=== PATIENT | male | born 1940 | race Caucasian/White ===

== ENCOUNTER 2019-08-19 14:04 | Outpatient (RCR) | payer MEDICARE, SELFPAY | END 2019-11-17 23:59 | disposition home or self-care (01) | LOC: ANHDMC 14:04 | PROVIDERS: PCP Family Medicine; Visit Provider Family Medicine | DX: E11.9 Type 2 diabetes mellitus without complications (principal); Z71.89 Other specified counseling | CPT/HCPCS: G0108; G0109 ==

== ENCOUNTER 2019-11-19 09:46 | Outpatient (RCR) | payer MEDICARE, SELFPAY | END 2020-02-17 23:59 | disposition home or self-care (01) | LOC: ANHDMC 09:46 | PROVIDERS: PCP Family Medicine; Visit Provider Family Medicine | DX: E11.9 Type 2 diabetes mellitus without complications (principal); Z71.89 Other specified counseling | CPT/HCPCS: G0108 ==

== ENCOUNTER 2020-03-16 12:21 | Outpatient (CLI) | payer MEDICARE, SELFPAY ==
[2020-03-16 12:58] LABS: Hemoglobin A1C 8.1 % (<5.7)
== END 2020-03-16 12:22 | disposition home or self-care (01) ==
PROVIDERS: PCP Family Medicine; Visit Provider Family Medicine
DX: E11.69 Type 2 diabetes mellitus with other specified complication (principal)
CPT/HCPCS: 36415; 83036

== ENCOUNTER 2021-03-28 14:24 | Outpatient (CLI) | payer MEDICARE, SELFPAY ==
[2021-03-28 14:57] LABS: Basophils Absolute Auto 0.1 K/mm3 (0.0-0.1); Eosinophils Absolute Auto 0.2 K/mm3 (0-0.3); Eosinophils Percent Auto 2.4 % (0-4.4); Hematocrit 42.9 % (42.0-52.0); Hemoglobin 14.8 g/dL (14.0-18.0); Immature Granulocyte Absolute 0.03 K/mm3 (0.00-0.031); Immature Granulocyte Percent A 0.4 % (0-0.5); Lymphocytes Absolute Auto 2.04 K/mm3 (0.9-3.2); Lymphocytes Percent Auto 25.9 % (18.3-44.2); Mean Corpuscular HGB Conc 34.5 g/dl (32-36); Mean Corpuscular Hemoglobin 33.3 pg (26-34); Mean Corpuscular Volume 96.6 fl (80-100); Mean Platelet Volume 9.1 fl (7.4-10.4); Monocytes Absolute Auto 0.7 K/mm3 (0.1-0.6); Monocytes Percent Auto 8.3 % (2.6-8.5); Neutrophils Absolute Auto 4.9 K/mm3 (1.3-6.7); Platelet Count Result 262 k/mm3 (150-375); Red Blood Count 4.44 M/mm3 (4.6-6.20); Red Cell Distribution Width 12.6 % (11.5-14.5); White Blood Count 7.9 K/mm3 (4.5-10.0)
[2021-03-28 15:08] LABS: Alanine Aminotransferase 20 U/L (4-50); Albumin Level 4.4 g/dL (3.5-5.1); Alkaline Phosphatase 51 U/L (38-126); Anion Gap 11 mmol/L (8-16); Aspartate Amino Transferase 37 U/L (17-59); Bilirubin,Total 0.7 mg/dL (0.2-1.3); Blood Urea Nitrogen 18 mg/dL (9-20); Calcium 9.9 mg/dL (8.4-10.2); Carbon Dioxide 27 mmol/L (22-30); Chloride 105 mmol/L (98-107); Cholesterol 147 mg/dL (0-200); Estimated Glomerular Filt Rate 58; Glucose 161 mg/dL (75-110); HDL Direct 54 mg/dL; Potassium 4.9 mmol/L (3.4-5.0); Sodium 143 mmol/L (137-145); Triglycerides 183 mg/dL (<150)
[2021-03-28 15:19] LABS: Hemoglobin A1C 7.7 % (<5.7); LDL Cholesterol Direct 65 mg/dL
[2021-03-28 15:31] LABS: Creatinine Urine 158.8 mg/dL
[2021-03-28 15:36] LABS: MALB Creatinine Ratio 5.1 mg/g (0-30); Microalbumin Urine Random 8.1 mg/L (0-16.7)
[2021-03-28 16:01] LABS: Vitamin D 25 Hydroxy 19.7 ng/mL
== END 2021-03-28 14:25 | disposition home or self-care (01) ==
LOC: ANHLAB 14:29
PROVIDERS: PCP Family Medicine; Visit Provider Nurse Practitioner
DX: I10 Essential (primary) hypertension (principal); E55.9 Vitamin D deficiency, unspecified; E11.9 Type 2 diabetes mellitus without complications; E78.5 Hyperlipidemia, unspecified
CPT/HCPCS: 36415; 80053; 80061; 82043; 82306; 83036; 85025

== ENCOUNTER 2022-01-26 12:41 | Outpatient (CLI) | payer MEDICARE, SELFPAY ==
--- NOTE | ~2022-01-26 | CT_ITS ---
EXAMINATION: CT abdomen pelvis wo con EXAM DATE: 01/26/2022 13:10 INDICATION: Enterococcus UTI. TECHNIQUE: Spiral CT of the abdomen and pelvis was performed without contrast. Axial, coronal and sag ittal images were reviewed. The dose-length product (DLP) for this examination was 1216.91 mGy-cm. The exposure was tailored according to patient size (auto mA exposure control), and iterative reconst ruction (ASIR) was used as additional dose reduction technique. There is no prior study for comparis on. FINDINGS: There is moderate left, mild right renal atrophy. There is stone or are 2 contiguous stones in the distal aspect of the left ureter, measuring 7 x 14 mm (axial image 169, coronal image 94), 3 cm from the ureterovesicular junction. No other genitourinary calcifications. No hydroureteronephrosi s. Mild prostatomegaly. The bladder is unremarkable. The liver, spleen, adrenal glands and pancreas are unremarkable. Gallbladder is unremarkable. No biliary obstruction. There is no retroperitonea l or pelvic lymphadenopathy. There is mild scattered arteriosclerotic disease. Small umbilical fat- containing hernia with some fat stranding. The appendix is normal. The stomach and small bowel are unremarkable. There is expected amount of c olonic stool. No free intraperitoneal gas. Sternotomy wires, mild cardiomegaly. Coronary artery eri cifications and/or stents. The lung bases are unremarkable. There are no osteoblastic or osteolytic lesions identified. IMPRESSION: 1. Stone or stones in the distal aspect left ureter. No hydronephrosis. Moderate left atrophy. 2. Small umbilical fat-containing hernia with some inflammation. 3. Mild prostatomegaly. Reviewed, dictated and finalized at location B. IMPRESSION: 1. Stone or stones in the distal aspect left ureter. No hydronephrosis. Modera te left atrophy. 2. Small umbilical fat-containing hernia with some inflammation. 3. Mild prostatomegaly.
--- NOTE | ~2022-01-26 | XR_ITS ---
EXAMINATION: XR abdomen/kub 1V EXAM DATE: 01/26/2022 13:05 INDICATION: Enterococcus urinary tract infection. TECHNIQUE: Frontal projection of the upper abdomen, frontal projection lower abdomen/pelvis for inter pretation. Correlation is made to x-ray same date. FINDINGS: Large left distal ureteral stone or stones is identified, indicated. Nonobstructive bowel gas pattern. Sternotomy wires. Moderate degenerative changes. IMPRESSION: Left distal ureteral stone or stones. Reviewed, dictated and finalized at location B.
== END 2022-01-26 12:42 | disposition home or self-care (01) ==
LOC: ANHIMG 12:43
PROVIDERS: PCP Family Medicine; Visit Provider Nurse Practitioner Adult Health
DX: N39.0 Urinary tract infection, site not specified (principal); N20.2 Calculus of kidney with calculus of ureter; K42.9 Umbilical hernia without obstruction or gangrene; N40.0 Benign prostatic hyperplasia without lower urinary tract symptoms
CPT/HCPCS: 74018; 74176

== ENCOUNTER 2022-02-05 11:05 | Outpatient (CLI) | payer MEDICARE, SELFPAY ==
--- NOTE | 2022-02-05 11:30 | ECG_ITS ---
Measurements Intervals [place] Rate: 64 P: 60 OR: 218 QRS: -37 QRSD: 123 T: 59 QT: 392 QTc: 406 Interpretive Statements SINUS RHYTHM WITH FIRST DEGREE AV BLOCK WITH OCCASIONAL SUPRAVENTRICULAR PREMATURE COMPLEXES MARKED LEFT AXIS DEVIATION [QRS AXIS < -30] INCOMPLETE LEFT BUNDLE BRANCH BLOCK NO PREVIOUS ECG AVAILABLE FOR COMPARISON Electronically Signed On 02-05-2022 16:27:20 CDT by Steven Salas M.D.
[2022-02-05 11:44] LABS: Anion Gap 8 mmol/L (8-16); Blood Urea Nitrogen 18 mg/dL (9-20); Calcium 9.1 mg/dL (8.4-10.2); Carbon Dioxide 26 mmol/L (22-30); Chloride 108 mmol/L (98-107); Estimated Glomerular Filt Rate > 60; Glucose 190 mg/dL (65-110); Potassium 4.4 mmol/L (3.4-5.0); Sodium 142 mmol/L (137-145)
[2022-02-05 11:56] LABS: INR 1.2; Partial Thromboplastin Time 29.8 SECONDS (22.3-36.8); Prothrombin Time 14.6 Seconds (11.1-14.7)
== END 2022-02-05 11:06 | disposition home or self-care (01) ==
LOC: ANHSURGERY 11:09
PROVIDERS: Anesthesiology; PCP Family Medicine; Visit Provider Urology
DX: Z01.818 Encounter for other preprocedural examination (principal); I10 Essential (primary) hypertension; E11.29 Type 2 diabetes mellitus with other diabetic kidney complication
CPT/HCPCS: 36415; 80048; 85610; 85730; 93005

== ENCOUNTER 2022-02-08 02:09 | Day surgery (SDC) | payer MEDICARE, SELFPAY ==
[2022-02-01 13:09] VITALS: BMI 33.5
--- NOTE | 2022-02-01 13:44 | PC.NURSE ---
Report to the Outpatient Waiting Room, entrance under the green pavilion located off [facility], at time __7:15AM on date __02/08/22 . OR Time: __9:15AM . - You and your visitor will be asked a series of questions to screen for COVID 19 for your protection. - A mask is required within the hospital. Preoperative COVID Testing Requirements: No COVID Test needed if: (proof is required; if not received patient will have Rapid Test prior to entry) - Patient has received COVID Vaccine at least 14 days prior to procedure date or - Patient has positive COVID test result within last 90 days of surgery date. COVID Test needed if above criteria is not met If not COVID vaccinated a COVID test must be conducted within 72 hours of surgery and patient is asked to isolate self from time of testing until procedure. You will go to the [facility] for your COVID testing. The [employer] [facility] site is located at the corner of [address] [facility]. You will only be called if COVID results are positive and your surgeon may reschedule your elective surgery date. Patients may have clear liquids (water, carbonated beverages, clear teas, apple juice) until 3 hours prior to surgery with a maximum of 20 ounces. - No food from midnight until time of surgery - Infants may have breast milk until 4 hours before surgery, formula 6 hours prior to surgery. - Children will be allowed to drink immediately following surgery. If applicable, please bring a bottle or sippy cup to assist with drinking. Juice, water, soda, and popsicles are readily available. For infants on formula, please bring formula the day of surgery. Pacifiers are allowed. Take the following medications with a SIP of water the morning of surgery: ___AMLODIPINE, METOPROLOL Medications to discontinue per physician HOLD CLOPIDOGREL(PLAVIX) AND ASPIRIN FOR [address] VARGAS & DR HIRSCH Date to take last dose 02/01/22 Please no make-up, nail vietnamese, hairspray, perfume, deodorant, or body powder the day of surgery. No jewelry (including any body piercings) or valuables the day of surgery, leave them at home. Please take a shower or bath the night before, or the morning of, surgery with an antibacterial soap. Wear comfortable, loose fitting clothing. Children are encouraged to wear pajamas. - Jewelry must be removed prior to entering the operating room. Rings and piercings that are not removed may be cut off. - The hospital will not accept responsibility for valuables. - Please leave all valuables, including medications, at home the day of surgery. If you are going home after surgery, a licensed otr tanker truck driver must drive you home. - NO public transportation without another adult. - We recommend that an adult stay with you for 24 hours following discharge. - We also recommend that you do not drive, make important decision, drink alcoholic beverages, or take any drugs that were not prescribed by your health care provider for at least 24 hours after your discharge time. For Pediatric surgeries, we recommend two adults accompany the child home (only one inside the building at this time). One visitor will be allowed to accompany the patient into the hospital. Patients visitor will be instructed to remain with patient at all times or leave the building. We will allow the visitor to come back to the postoperative area when patient is ready. Follow any additional instructions given to you from your surgeon. Telephone instructions given to __PATIENT & WIFE and asked if any additional questions and then verbalized understanding. Patient advised to call surgeon office or pre surgery nurse liaison [phone] if any additional questions.
--- NOTE | 2022-02-07 11:29 | WPDANESEPPF ---
Anes - Initial Pre Proc Eval Procedure: Operation Date: 02/08/22 09:15 Proposed Procedures p Cystoscopy, Left Ureteroscopy, Left Retrograde Pyelogram, Left Stone Extraction, Possible Left Stent Placement - Noam Canela MD s Possible Holmium Laser Procedure - Noam Canela MD Date/Time: 02/07/22 11:29 Surgeon: Noam Canela MD Pre Op Diagnosis: left ureteral stone Patient Data Age: 81 Gender: M Height: 1.73 m Weight: 100 kg Allergies Allergy/AdvReac Type Severity Reaction Status Date / Time oxycodone AdvReac Severe Hallucinati Verified 02/08/22 07:45 ons Home Medications Medication Instructions Recorded Confirmed Type clopidogrel 75 mg tablet 75 mg PO DAILY 05/26/20 02/08/22 History metoprolol tartrate 50 mg tablet 50 mg PO Q12H #180 tablet 08/21/21 02/08/22 Rx blood sugar diagnostic #100 ea 09/04/21 12/11/21 Rx blood-glucose meter #1 ea 09/04/21 12/11/21 Rx lancets #100 ea 09/04/21 12/11/21 Rx lovastatin 20 mg tablet 20 mg PO QHS #90 tablet 09/08/21 02/08/22 Rx quinapril 20 mg tablet See Rx Instructions .ROUTE 11/13/21 02/08/22 Rx .COMPLEX #270 tablet metformin 1,000 mg tablet 1,000 mg PO BID #180 tablet 11/20/21 02/08/22 Rx amlodipine 5 mg PO QAM 02/01/22 02/08/22 History aspirin [Adult Low Dose Aspirin] 81 mg PO DAILY 02/01/22 02/08/22 History chlorthalidone 25 mg PO QAM 02/01/22 02/08/22 History apixaban [Eliquis] 5 mg PO BID 02/08/22 02/08/22 History Patient hx anesthesia problems: none Family hx anesthesia problems: none Results Review: All pre-operative results and documents have been reviewed as part of the pre-operative evaluation. 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 Family History Family History Father Family history of diabetes mellitus in first degree relative Sibling Family history of lung cancer Family history of malignant neoplasm of bone Other Diabetes mellitus Social History Social History Smoking status: Never smoker Second hand tobacco smoke exposure: No Alcohol intake: never Substance use: never Living arrangements: alone Additional living arrangements comments: Spiritual care concerns: No Anes - Eval Final PreProcedure Day of Procedure 02/07/22 11:29 Patient weight: obese Heart: regular rate and rhythm Lungs: clear to auscultation and normal air movement Airway: Mallampati scale class II Neurological: alert and oriented Last oral intake: >/= 8 hours ASA classification: III Emergent: no Anesthetic plan: proceed Anesthesia type and monitoring: general LMA and standard monitoring Results Review: All pre-operative results and documents have been reviewed as part of the pre-operative evaluation. Informed Consent: The patient's anesthetic plan and its attendant risks and benefits were discussed with the patient/family/POA. Questions were solicited and answers provided to the satisfaction of the patient/family/POA.
[2022-02-08] VITALS (8 sets, daily range): BP systolic 100–146; BP diastolic 52–75; PULSE 57–74; RESP 10–22; TEMP 36.3–36.6; O2SAT 95–100
--- NOTE | ~2022-02-08 | XR_ITS ---
EXAMINATION: XR stent kub - surgery DATE: 02/08/2022 10:29 INDICATION: Left ureteral stones. Left internal ureteral stenting TECHNIQUE: 4 fluoroscopic images of the abdomen and pelvis were obtained during procedure performed roselia Canela. Radiologist was not present for the imaging or procedure. The amount of fluoroscopy michael e used during this procedure was 0.4 minutes. COMPARISON: 01/26/2022 FINDINGS: On the initial images demonstrates a wire advanced into the left ureter alongside couple persistent l arger stones in the distal left ureter. Subsequent images demonstrate placement of a left internal ur eteral stent with loops formed in expected location of the bladder and left kidney. The distal left u reteral stone cannot evident on the final images and have likely been extracted. IMPRESSION: 1. Likely extraction of the previously noted pair of larger distal left ureteral stones and subsequen t left internal ureteral stent placement. Correlate with procedure note for further detail. Reviewed, dictated and finalized at location B. IMPRESSION: 1. Likely extraction of the previously noted pair of larger distal left uretera l stones and subsequent left internal ureteral stent placement. Correlate with procedure note for further detail.
--- NOTE | 2022-02-08 06:39 | WPDHPUPDATE1 ---
History and Physical Update Update Date/Time: 02/08/22 06:39 History and Physical has been reviewed, including an updated exam of the patient. There are NO changes in the patient's condition. Risks, benefits, and alternatives have been discussed and questions answered. Patient agrees to proceed with procedure.
[2022-02-08] MEDS: LACTATED RINGERS 1,000 ML 30 ML IV CONT (08:05)
[2022-02-08 08:13] LABS: Glucose Point of Care 151 mg/dl (65-105)
[2022-02-08] MEDS: ceFAZolin 2 GM/D5W 50 ML 2 GM/50 ML BAG IVPB (09:40)
[2022-02-08] MEDS: LIDOCAINE HCL 2% GEL UROJET 10 ML PKG MUCOUS MEM (09:54)
--- NOTE | 2022-02-08 10:33 | W.PM.PROC2 ---
Procedure Note - Detailed Date of Procedure 02/08/22 Pre-op Diagnosis Left ureteral stones Post-op Diagnosis Same Procedure Performed Cystoscopy, left ureteroscopy with laser lithotripsy, stone extraction and left ureteral stent placement Surgeon Noam Canela MD Anesthesia General Description of Procedure The patient was brought to the operative suite where he is prepped and draped in a routine sterile fashion while in the dorsal lithotomy position after the uneventful induction of a general LMA anesthetic. A 19F rigid cystoscope was placed in the bladder. There are no urethral strictures. His prostatic urethra measures, approximately, 1cm with no median lobe enlargement. The bladder mucosa was endoscopically normal without hyperemia or neoplasm. There was a single, orthotopic ureteral orifice bilaterally. A 0.035 glidewire was advanced into the left renal pelvis under fluoroscopy. The distal ureter was dilated with an 8F/10F ureteral dilator. Ureteroscopy was undertaken with a short tapered semi-rigid ureteroscope. During ureteroscopy I fractured the stone into smaller pieces using a 273 micron Holmium laser fiber with the Holmium laser. I was able to then extract the stone pieces using a 1.9F Escape, disposable stone basket. Due to the extent of this manipulation I did place a 4.8F double-J ureteral stent. The proximal coil of the stent was confirmed to be in the renal pelvis and the distal coil in the bladder. The patient's bladder was emptied and he was taken to the recovery room having tolerated this procedure well. Drains Yes Packing No Pathology Yes Complications No immediate complications Condition Stable Disposition PACU
[2022-02-08 10:37] LABS: Glucose Point of Care 162 mg/dl (65-105)
== END 2022-02-08 12:40 | disposition home or self-care (01) ==
PROVIDERS: PCP Family Medicine; Visit Provider Urology
PROC: (CPT 52352; principal; 2022-02-08 09:15)
PROC: (CPT 52356; 2022-02-08 09:15)
DX: N20.1 Calculus of ureter (principal); I48.91 Unspecified atrial fibrillation; I12.9 Hypertensive chronic kidney disease with stage 1 through stage 4 chronic kidney disease, or unspecified chronic kidney disease; E11.22 Type 2 diabetes mellitus with diabetic chronic kidney disease; N18.30 Chronic kidney disease, stage 3 unspecified; G47.33 Obstructive sleep apnea (adult) (pediatric); N40.1 Benign prostatic hyperplasia with lower urinary tract symptoms; Z86.73 Personal history of transient ischemic attack (TIA), and cerebral infarction without residual deficits; Z95.1 Presence of aortocoronary bypass graft; E66.9 Obesity, unspecified; Z68.33 Body mass index [BMI] 33.0-33.9, adult; Z79.02 Long term (current) use of antithrombotics/antiplatelets; Z79.84 Long term (current) use of oral hypoglycemic drugs; Z79.82 Long term (current) use of aspirin; Z79.01 Long term (current) use of anticoagulants
CPT/HCPCS: 52356; 82365; 82948; 88300; A9270; C1769; C2617; J0690; J1100; J2370; J2405; J2704; J3010; J7120; Q9966

== ENCOUNTER 2022-05-08 10:31 | Outpatient (CLI) | payer MEDICARE, SELFPAY ==
--- NOTE | ~2022-05-08 | XR_ITS ---
XR abdomen/kub 1V 05/08/2022 10:50 Indication: Left ureteral stone Procedure: KUB Comparison: 01/26/2022 Findings: Bowel gas pattern is nonobstructive. No abnormal calcifications. There are pelvic phlebolit hs. There is moderate lumbar spondylosis. Impression: 1: No acute abdominal abnormality. Reviewed, dictated and finalized at location A. Impression: 1: No acute abdominal abnormality.
== END 2022-05-08 10:32 | disposition home or self-care (01) ==
PROVIDERS: PCP Family Medicine; Visit Provider Urology
DX: N20.1 Calculus of ureter (principal)
CPT/HCPCS: 74018

== ENCOUNTER 2022-05-08 11:19 | Outpatient (CLI) | payer MEDICARE, SELFPAY ==
[2022-05-08 18:35] LABS: Basophils Absolute Auto 0.1 K/mm3 (0.0-0.1); Basophils Percent Auto 0.6 % (0.2-1.2); Eosinophils Absolute Auto 0.2 K/mm3 (0-0.3); Hematocrit 41.9 % (42.0-52.0); Hemoglobin 13.9 g/dL (14.0-18.0); Immature Granulocyte Absolute 0.03 K/mm3 (0.00-0.031); Immature Granulocyte Percent A 0.4 % (0-0.5); Lymphocytes Absolute Auto 1.99 K/mm3 (0.9-3.2); Lymphocytes Percent Auto 24.8 % (18.3-44.2); Mean Corpuscular HGB Conc 33.2 g/dl (32-36); Mean Corpuscular Hemoglobin 32.3 pg (26-34); Mean Corpuscular Volume 97.2 fl (80-100); Mean Platelet Volume 9.5 fl (7.4-10.4); Monocytes Absolute Auto 0.7 K/mm3 (0.1-0.6); Monocytes Percent Auto 8.1 % (2.6-8.5); Neutrophils Absolute Auto 5.1 K/mm3 (1.3-6.7); Neutrophils Percent Auto 63.1 % (45.5-73.1); Platelet Count Result 299 k/mm3 (150-375); Red Blood Count 4.31 M/mm3 (4.6-6.20); Red Cell Distribution Width 13.2 % (11.5-14.5)
[2022-05-08 18:47] LABS: Alanine Aminotransferase 22 U/L (6-50); Albumin Level 4.6 g/dL (3.5-5.1); Alkaline Phosphatase 69 U/L (38-126); Anion Gap 12 mmol/L (8-16); Aspartate Amino Transferase 38 U/L (17-59); Bilirubin,Total 0.7 mg/dL (0.2-1.3); Blood Urea Nitrogen 20 mg/dL (9-20); Calcium 9.2 mg/dL (8.4-10.2); Carbon Dioxide 27 mmol/L (22-30); Chloride 102 mmol/L (98-107); Cholesterol 159 mg/dL (0-200); Estimated Glomerular Filt Rate 58; Glucose 149 mg/dL (65-110); HDL Direct 52 mg/dL; Potassium 4.7 mmol/L (3.4-5.0); Sodium 141 mmol/L (137-145); Triglycerides 128 mg/dL (<150)
[2022-05-08 18:58] LABS: LDL Cholesterol Direct 69 mg/dL
[2022-05-08 19:10] LABS: Creatinine Urine 90.2 mg/dL
[2022-05-08 19:12] LABS: MALB Creatinine Ratio 11.2 mg/g (0-30); Microalbumin Urine Random 10.1 mg/L (0-16.7)
[2022-05-08 19:34] LABS: Vitamin D 25 Hydroxy 24.8 ng/mL
[2022-05-08 20:53] LABS: Hemoglobin A1C 7.4 % (<5.7)
== END 2022-05-08 11:20 | disposition home or self-care (01) ==
LOC: ANHGOSHLAB 11:26
PROVIDERS: PCP Family Medicine; Visit Provider Family Medicine
DX: I10 Essential (primary) hypertension (principal); E11.9 Type 2 diabetes mellitus without complications; E78.5 Hyperlipidemia, unspecified; E55.9 Vitamin D deficiency, unspecified
CPT/HCPCS: 36415; 74018; 80053; 80061; 82043; 82306; 83036; 84443; 85025

== ENCOUNTER 2022-10-30 12:43 | Outpatient (CLI) | payer MEDICARE, SELFPAY ==
[2022-10-30 13:15] LABS: Basophils Absolute Auto 0.1 K/mm3 (0.0-0.1); Basophils Percent Auto 1.2 % (0.2-1.2); Eosinophils Absolute Auto 0.2 K/mm3 (0-0.3); Eosinophils Percent Auto 2.6 % (0-4.4); Hematocrit 36.9 % (42.0-52.0); Hemoglobin 12.2 g/dL (14.0-18.0); Immature Granulocyte Absolute 0.04 K/mm3 (0.00-0.031); Immature Granulocyte Percent A 0.5 % (0-0.5); Lymphocytes Absolute Auto 1.57 K/mm3 (0.9-3.2); Lymphocytes Percent Auto 20.1 % (18.3-44.2); Mean Corpuscular HGB Conc 33.1 g/dl (32-36); Mean Corpuscular Hemoglobin 33.1 pg (26-34); Monocytes Absolute Auto 0.8 K/mm3 (0.1-0.6); Monocytes Percent Auto 10.4 % (2.6-8.5); Neutrophils Absolute Auto 5.1 K/mm3 (1.3-6.7); Neutrophils Percent Auto 65.2 % (45.5-73.1); Platelet Count Result 252 k/mm3 (150-375); Red Blood Count 3.69 M/mm3 (4.6-6.20); Red Cell Distribution Width 13.2 % (11.5-14.5); White Blood Count 7.8 K/mm3 (4.5-10.0)
[2022-10-30 13:26] LABS: Alanine Aminotransferase 24 U/L (6-50); Albumin Level 4.1 g/dL (3.5-5.1); Alkaline Phosphatase 64 U/L (38-126); Anion Gap 11 mmol/L (8-16); Aspartate Amino Transferase 27 U/L (17-59); Bilirubin,Total 0.4 mg/dL (0.2-1.3); Blood Urea Nitrogen 27 mg/dL (9-20); Calcium 8.8 mg/dL (8.4-10.2); Carbon Dioxide 22 mmol/L (22-30); Chloride 109 mmol/L (98-107); Estimated Glomerular Filt Rate 53; Glucose 182 mg/dL (65-110); Potassium 4.5 mmol/L (3.4-5.0); Sodium 142 mmol/L (137-145)
[2022-10-30 13:27] LABS: Hemoglobin A1C 7.7 % (<5.7)
== END 2022-10-30 12:44 | disposition home or self-care (01) ==
LOC: ANHLAB 12:47
PROVIDERS: PCP Family Medicine; Visit Provider Nurse Practitioner Family
DX: I10 Essential (primary) hypertension (principal); E11.9 Type 2 diabetes mellitus without complications; E03.9 Hypothyroidism, unspecified
CPT/HCPCS: 36415; 80053; 83036; 84443; 85025

== ENCOUNTER 2022-11-20 14:10 | Outpatient (CLI) | payer MEDICARE, SELFPAY ==
[2022-11-20 19:08] LABS: Iron 93 ug/dL (49-181)
[2022-11-20 19:18] LABS: Percent Iron Saturation 29 % (20-50)
== END 2022-11-20 14:11 | disposition home or self-care (01) ==
LOC: ANHGOSHLAB 14:13
PROVIDERS: PCP Family Medicine; Visit Provider Nurse Practitioner Family
DX: D64.9 Anemia, unspecified (principal)
CPT/HCPCS: 36415; 82607; 82728; 83540; 83550

== ENCOUNTER 2023-06-10 13:15 | Outpatient (CLI) | payer MEDICARE, SELFPAY ==
[2023-06-10 18:57] LABS: Basophils Absolute Auto 0.1 K/mm3 (0.0-0.1); Basophils Percent Auto 0.7 % (0.2-1.2); Eosinophils Absolute Auto 0.2 K/mm3 (0-0.3); Eosinophils Percent Auto 2.2 % (0-4.4); Hematocrit 40.2 % (42.0-52.0); Hemoglobin 13.2 g/dL (14.0-18.0); Immature Granulocyte Absolute 0.02 K/mm3 (0.00-0.031); Immature Granulocyte Percent A 0.3 % (0-0.5); Lymphocytes Absolute Auto 1.53 K/mm3 (0.9-3.2); Lymphocytes Percent Auto 19.9 % (18.3-44.2); Mean Corpuscular HGB Conc 32.8 g/dl (32-36); Mean Corpuscular Hemoglobin 32.2 pg (26-34); Mean Platelet Volume 9.8 fl (7.4-10.4); Monocytes Absolute Auto 0.6 K/mm3 (0.1-0.6); Monocytes Percent Auto 8.1 % (2.6-8.5); Neutrophils Absolute Auto 5.3 K/mm3 (1.3-6.7); Neutrophils Percent Auto 68.8 % (45.5-73.1); Platelet Count Result 264 k/mm3 (150-375); Red Cell Distribution Width 13.3 % (11.5-14.5); White Blood Count 7.7 K/mm3 (4.5-10.0)
[2023-06-10 19:18] LABS: Alanine Aminotransferase 23 U/L (6-50); Albumin Level 4.2 g/dL (3.5-5.1); Alkaline Phosphatase 58 U/L (38-126); Anion Gap 9 mmol/L (8-16); Aspartate Amino Transferase 46 U/L (17-59); Bilirubin,Total 0.8 mg/dL (0.2-1.3); Blood Urea Nitrogen 26 mg/dL (9-20); Calcium 9.2 mg/dL (8.4-10.2); Carbon Dioxide 25 mmol/L (22-30); Chloride 107 mmol/L (98-107); Cholesterol 145 mg/dL (0-200); Estimated Glomerular Filt Rate 45; Glucose 207 mg/dL (65-110); HDL Direct 41 mg/dL; Potassium 4.4 mmol/L (3.4-5.0); Sodium 141 mmol/L (137-145); Triglycerides 132 mg/dL (<150)
[2023-06-10 19:33] LABS: LDL Cholesterol Direct 77 mg/dL
[2023-06-10 20:01] LABS: Hemoglobin A1C 6.8 % (<5.7)
[2023-06-13 23:59] LABS: Vitamin D 1,25 (OH)2 Total 18 pg/mL (18-72); Vitamin D2 1,25 (OH)2 <8 pg/mL; Vitamin D3 1,25 (OH)2 18 pg/mL
== END 2023-06-10 13:16 | disposition home or self-care (01) ==
LOC: ANHGOSHLAB 13:17
PROVIDERS: PCP Family Medicine; Visit Provider Nurse Practitioner Family
DX: E11.29 Type 2 diabetes mellitus with other diabetic kidney complication (principal); I10 Essential (primary) hypertension; E55.9 Vitamin D deficiency, unspecified
CPT/HCPCS: 36415; 80053; 80061; 82652; 83036; 85025

== ENCOUNTER 2023-11-22 10:35 | Outpatient (CLI) | payer MEDICARE, SELFPAY ==
[2023-11-22 12:14] LABS: Basophils Percent Auto 0.6 % (0.2-1.2); Eosinophils Absolute Auto 0.2 K/mm3 (0-0.3); Eosinophils Percent Auto 3.8 % (0-4.4); Hematocrit 41.6 % (42.0-52.0); Hemoglobin 13.7 g/dL (14.0-18.0); Immature Granulocyte Absolute 0.03 K/mm3 (0.00-0.031); Immature Granulocyte Percent A 0.5 % (0-0.5); Lymphocytes Absolute Auto 1.24 K/mm3 (0.9-3.2); Lymphocytes Percent Auto 19.7 % (18.3-44.2); Mean Corpuscular HGB Conc 32.9 g/dl (32-36); Mean Corpuscular Hemoglobin 32.5 pg (26-34); Mean Corpuscular Volume 98.6 fl (80-100); Mean Platelet Volume 9.9 fl (7.4-10.4); Monocytes Absolute Auto 0.6 K/mm3 (0.1-0.6); Monocytes Percent Auto 9.4 % (2.6-8.5); Neutrophils Absolute Auto 4.2 K/mm3 (1.3-6.7); Platelet Count Result 250 k/mm3 (150-375); Red Blood Count 4.22 M/mm3 (4.6-6.20); White Blood Count 6.3 K/mm3 (4.5-10.0)
[2023-11-22 12:28] LABS: Alanine Aminotransferase 22 U/L (6-50); Alkaline Phosphatase 60 U/L (38-126); Anion Gap 8 mmol/L (8-16); Aspartate Amino Transferase 53 U/L (17-59); Bilirubin,Total 0.9 mg/dL (0.2-1.3); Blood Urea Nitrogen 25 mg/dL (9-20); Calcium 9.1 mg/dL (8.4-10.2); Carbon Dioxide 21 mmol/L (22-30); Chloride 110 mmol/L (98-107); Cholesterol 124 mg/dL (0-200); Estimated Glomerular Filt Rate 53; Glucose 95 mg/dL (65-110); HDL Direct 45 mg/dL; Potassium 4.2 mmol/L (3.4-5.0); Sodium 139 mmol/L (137-145); Triglycerides 76 mg/dL (<150)
[2023-11-22 12:39] LABS: LDL Cholesterol Direct 65 mg/dL
[2023-11-27 00:30] LABS: Vitamin D 1,25 (OH)2 Total 10 pg/mL (18-72); Vitamin D2 1,25 (OH)2 <8 pg/mL; Vitamin D3 1,25 (OH)2 10 pg/mL
== END 2023-11-22 10:36 | disposition home or self-care (01) ==
PROVIDERS: PCP Family Medicine; Visit Provider Nurse Practitioner Family
DX: E55.9 Vitamin D deficiency, unspecified (principal); I10 Essential (primary) hypertension; E53.8 Deficiency of other specified B group vitamins
CPT/HCPCS: 36415; 80053; 80061; 82607; 82652; 85025

== ENCOUNTER 2024-05-27 10:25 | Outpatient (CLI) | payer MEDICARE, SELFPAY ==
[2024-05-27 12:50] LABS: Basophils Absolute Auto 0.1 K/mm3 (0.0-0.1); Basophils Percent Auto 0.8 % (0.2-1.2); Eosinophils Absolute Auto 0.2 K/mm3 (0-0.3); Eosinophils Percent Auto 2.7 % (0-4.4); Hematocrit 43.6 % (42.0-52.0); Hemoglobin 14.3 g/dL (14.0-18.0); Immature Granulocyte Absolute 0.03 K/mm3 (0.00-0.031); Immature Granulocyte Percent A 0.3 % (0-0.5); Lymphocytes Absolute Auto 1.77 K/mm3 (0.9-3.2); Lymphocytes Percent Auto 20.2 % (18.3-44.2); Mean Corpuscular HGB Conc 32.8 g/dl (32-36); Mean Corpuscular Hemoglobin 32.7 pg (26-34); Mean Corpuscular Volume 99.8 fl (80-100); Mean Platelet Volume 9.9 fl (7.4-10.4); Monocytes Absolute Auto 0.9 K/mm3 (0.1-0.6); Monocytes Percent Auto 9.7 % (2.6-8.5); Neutrophils Absolute Auto 5.8 K/mm3 (1.3-6.7); Neutrophils Percent Auto 66.3 % (45.5-73.1); Platelet Count Result 298 k/mm3 (150-375); Red Blood Count 4.37 M/mm3 (4.6-6.20); Red Cell Distribution Width 12.6 % (11.5-14.5); White Blood Count 8.8 K/mm3 (4.5-10.0)
[2024-05-27 13:00] LABS: Alanine Aminotransferase 28 U/L (6-50); Albumin Level 4.4 g/dL (3.5-5.1); Alkaline Phosphatase 68 U/L (38-126); Anion Gap 13 mmol/L (4-12); Aspartate Amino Transferase 56 U/L (17-59); Bilirubin,Total 1.1 mg/dL (0.2-1.3); Blood Urea Nitrogen 33 mg/dL (9-20); Calcium 9.9 mg/dL (8.4-10.2); Carbon Dioxide 24 mmol/L (22-30); Chloride 105 mmol/L (98-107); Cholesterol 138 mg/dL (0-200); Estimated Glomerular Filt Rate 41; Glucose 77 mg/dL (65-110); HDL Direct 46 mg/dL; Potassium 5.2 mmol/L (3.4-5.0); Sodium 142 mmol/L (137-145); Triglycerides 111 mg/dL (<150)
[2024-05-27 13:10] LABS: LDL Cholesterol Direct 66 mg/dL
[2024-05-27 13:25] LABS: Creatinine Urine 110.5 mg/dL
[2024-05-27 13:30] LABS: MALB Creatinine Ratio 6.3 mg/g (0-30)
[2024-05-27 13:36] LABS: Hemoglobin A1C 5.5 % (<5.7)
[2024-05-27 13:40] LABS: Vitamin D 25 Hydroxy 82.7 ng/mL
== END 2024-05-27 10:26 | disposition home or self-care (01) ==
LOC: ANHGOSHLAB 10:26
PROVIDERS: PCP Family Medicine; Visit Provider Nurse Practitioner Family
DX: I10 Essential (primary) hypertension (principal); E78.5 Hyperlipidemia, unspecified; E11.9 Type 2 diabetes mellitus without complications; Z00.00 Encounter for general adult medical examination without abnormal findings; E55.9 Vitamin D deficiency, unspecified; R53.83 Other fatigue
CPT/HCPCS: 36415; 80053; 80061; 82043; 82306; 82607; 83036; 84443; 85025

== ENCOUNTER 2025-01-27 15:07 | Outpatient (CLI) | payer MEDICARE, SELFPAY ==
--- OUTSIDE RECORDS SUMMARY | 2025-01-27 16:25 | XMS_ITS | Clinical Summary ---
Author Organization [facility] D Address [address] [place] [id number] Care Team Providers Care Railroad Watchman Name Role Phone Cathy Sanderson MD Primary Care Provider Miscellaneous, Not In File Unavailable Unava ilable Allergies Active Allergy Reactions Criticality Noted Date Comments Oxycodone Hallucinations Medium 08/25/2021 Medications metFORMIN (GLUCOPHAGE) 1,000 mg tablet take 1 tablet by oral route 2 times every day with morning and evening meals 0 4 Active quinapril (ACCUPRIL) 20 mg tablet take 1 tablet by oral route 2 times every day 180 3 5 Active metoprolol (LOPRESSOR) 50 mg tablet take 1 tablet (50MG) by oral route 2 times every day with meals 0 3 Active lovastatin (MEVACOR) 20 mg tablet take 1 tablet (20MG) by oral route every day with the evening meal 0 3 Active aspirin 81 mg chewable tablet Take 1 tablet (81 mg total) by mouth daily Active amLODIPine (NORVASC) 5 mg tablet Take 1 tablet (5 mg total) by mouth daily 1 8 Active chlorthalidone 25 mg tablet Take 1 tablet (25 mg total) by mouth daily 0 8 Active acetaminophen 500 mg capsuleIndicatio ns:Pain Take 2 capsules (1,000 mg total) by mouth every 6 (six) hours 30 tablet 1 Active lisinopriL (PRINIVIL,ZESTRI L) 40 mg tablet Take 1 tablet (40 mg total) by mouth daily 3 Active hydrOXYzine (ATARAX) 10 mg tablet Take 1 tablet (10 mg total) by mouth nightly as needed 3 Active citalopram (CeleXA) 10 mg tablet Take 1 tablet (10 mg total) by mouth daily 3 Active alfuzosin ER (UROXATRAL) 10 mg 24 hr tablet Take 1 tablet (10 mg total) by mouth nightly 3 Active cholecalciferol (VITAMIN D-3) 2000 unit capsule Take 1 capsule (2,000 Units total) by mouth daily 4 Active glimepiride (AMARYL) 2 mg tablet 4 Active apixaban (ELIQUIS) 5 mg tabletIndication s:VTE Prophylaxis Take 1 tablet (5 mg total) by mouth 2 (two) times a day 180 tablet 5 04/18/20 25 Active apixaban (ELIQUIS) 5 mg tabletIndication s:VTE Prophylaxis Take 1 tablet (5 mg total) by mouth 2 (two) times a day for 14 days 28 tablet 4 01/19/20 25 Discontinu ed(Reorder ) apixaban (ELIQUIS) 5 mg tabletIndication s:VTE Prophylaxis Take 1 tablet (5 mg total) by mouth 2 (two) times a day for 14 days 28 tablet 5 01/19/20 25 Discontinu ed(Reorder ) Active Problems Problem Noted Date Diagnosed Date Pyelonephritis 10/01/2022 Assessment & Plan (10/02/2022 4:57 AM BOILERMAKER WELDER): History of recurrent UTIs. Recently treated with Macrobid. Septic workup in progress. Urinalysis positive for UTI with hematuria. Started on cefepime. Follow-up with blood culture, urine cultures. CBC and BMP in a.m.. Acute blood loss anemia 08/12/2021 Atrial fibrillation, persistent 08/12/2021 Assessment & Plan (10/02/2022 4:55 AM BOILERMAKER WELDER): Rate controlled. On Eliquis oral anticoagulation. Continue metoprolol. Traumatic hematoma of left knee 08/12/2021 Acute pain due to trauma 08/12/2021 Prostatic hypertrophy 08/12/2021 CHAPIN (acute kidney injury) 08/12/2021 Hematoma of thigh 08/11/2021 Complex sleep apnea syndrome 09/09/2017 Severe obesity (BMI 35.0-35.9 with comorbidity) (CMS/HCC) 09/09/2017 Hypersomnia with sleep apnea 09/09/2017 Coronary artery disease invo lving [place] coronary artery of [place] heart without angina pectoris 05/30/2017 Assessment & Plan (10/02/2022 4:55 AM BOILERMAKER WELDER): Continue metoprolol, lisinopril, amlodipine. Aspirin, statin Assessment & Plan (05/30/2017 10:07 AM CDT): Asymptomatic. He is on anti-platelet and beta-andrey therapy. He was encouraged to get more exercise. Essential hypertension 05/30/2017 Assessment & Plan (10/02/2022 4:55 AM BOILERMAKER WELDER): Blood pressure is stable. Will resume antihypertensives Assessment & Plan (05/30/2017 10:07 AM CDT): According to his discharge paperwork, his blood pressure was elevated when he was discharged from [facility], but it was checked twice today in was normal both times. No change in medication. Hyperlipidemia 05/30/2017 Assessment & Plan (10/02/2022 4:55 AM BOILERMAKER WELDER): On statin and aspirin. Assessment & Plan (05/30/2017 10:08 AM CDT): On chronic lipid lowering therapy with good control. No changes made. Proteinuria 02/13/2016 Type 2 diabetes mellitus without complication (C MS/HCC) 02/13/2016 Assessment & Plan (10/02/2022 4:57 AM BOILERMAKER WELDER): Hold metformin. Started on low-dose sliding scale insulin per inpatient protocol. Immunizations Immunization Administration Dates Next Due Influenza, Trivalent, High D ose, Split, Preservative Free, Intramuscular 07/10/2017 Influenza, Trivalent, IM (MDV) 08/03/2016 Pneumococcal, Unspecified 08/03/2016 Tdap 08/07/2021 Surgical History Surgery Date Site/Laterality Comments HEART SURGERY open heart surgery Medical History Medical History Date Comments Hx Other Medical diabetes; Comme nts: [facility] 06/08/2015 - Hx Other Medical high cholestero l; Comments: [facility] 06/08/2015 - Diabetes mellitus (HCC) Hypertension Stroke (HCC) Sleep apnea Family History Medical History Relation Name Comments Other Father Valve Replaceme nt; Cause of : Valve Replacement Stroke Mother Stroke; Cancer Other 1 Family history of cancer; Diabetes Other 2 Family history of diabetes; Other Other 3 Family history of HTN; Relation Name Status Comments Father (Age 70) Mother Alive Other 1 Other 2 Other 3 Social History Tobacco Use Types Packs/Day Years Used Date Smoking Tobacco: Never Smokeless Tobacco: Never Tobacco Cessation:Counseling Given: Not Answered Alcohol Use Standard Drinks/Week Comments No 0 (1 standard drink = 0.6 oz pur e alcohol) AUDIT-C Answer Date Recorded Q1: How often do you have a drink containing alc ohol? Never 09/15/2021 Average Number of Drinks Not on file 021 Frequency of Binge Drinking Not on file 12/2020 Hunger Vital Sign Answer Date Recorded Within the past 12 months, y ou worried that your food would run out before you got the money to buy more. Never true 08/25/20 21 Within the past 12 months, t he food you bought just didn't last and you didn't have money to get more. Never true 08/25/2021 Sex and Gender Information Value Date Recorded Sex Assigned at Not on file Legal Sex Male 7:48 PM BOILERMAKER WELDER Gender Identity Not on file Sexual Orientation Not on file Obstetrics History Last Filed Vital Signs Vital Sign Reading Time Taken Comments Blood Pressure 151/77 09/08/2024 10:38 AM BOILERMAKER WELDER Pulse 57 09/08/2024 10:38 AM BOILERMAKER WELDER Temperature 36.6 C (97.8 F) 10/03/2022 8:07 AM BOILERMAKER WELDER Respiratory Rate 16 09/17/2023 10:35 AM BOILERMAKER WELDER Oxygen Saturation 96% 09/08/2024 10:38 AM BOILERMAKER WELDER Inhaled Oxygen Concentration - - Weight 107 kg (235 lb 12.8 oz) 09/08/2024 10:38 AM BOILERMAKER WELDER Height 170.2 cm (5' 7.01 ) 09/08/2024 10:[address] Body Mass Index 36.92 09/08/2024 10:38 AM BOILERMAKER WELDER Plan of Treatment Health Maintenance Due Date Last Done Comments Albumin Creatinine Ratio, Urine 1941 Depression Screening 1941 Dilated Eye Exam 1941 Foot Exam 1941 Hepatitis B Screening 1959 Zoster Vaccine (1 of 2) 1991 Well Visit 65+ 2006 Pneumococcal vaccine 65+ (2 of 2 - PCV) 08/03/2017 08/03/2016, 07/31/2013 Hemoglobin A1C 02/10/2022 08/12/2021, 07/10/2017 Lipid Panel 08/13/2022 08/13/2021, 06/15, 08/09/2016 Fall Risk Assessment 10/03/2023 10/03/2022 eGFR 10/03/2023 10/03/2022, 09/14, 10/01/2022, Additional history exists Influenza Vaccine (Season Ended) 2025 08/17/2018, 07/10/2017, 08/03/2016, Additional history exists DTaP/Tdap/Td Vaccine (2 - Td or Tdap) 08/07/2031 08/07/2021 Procedures Procedure Name Priority Date/Time Associated Diagnosis Comments EGFR Routine 10/03/2022 5:11 AM BOILERMAKER WELDER LIPID PANEL Timed 08/13/2021 9:59 AM CDT HEMOGLOBIN A1C Timed 08/12/2021 9:52 PM CDT from Last 3 Months or Most Recently Relevant to Health Maintenance Results * eGFR (10/03/2022 5:11 AM BOILERMAKER WELDER) eGFR 63 mL/min/1. 73 m2 [facility] Comment: Interpretive Data Reference Interval Normal >/= 90 mL/min/1.73m2 Mildly decreased* 60 - 89 mL/min/1.73m2 Mildly to moderately decreased 45 - 59 mL/min/1.73m2 Moderately to severely decreased 30 - 44 mL/min/1.73m2 Severely decreased 15 - 29 mL/min/1.73m2 Kidney Failure < 15 mL/min/1.73m2 *Relative to young adult level Estimated glomerular filtration rate is determined by the 2020 CKD-EPI equation recommended by the National Kidney Foundation (A Unifying Approach to GFR Estimation: Recommendations of the NKF-ASK Task Force on Reassessing the Inclusion of Race in Diagnosing Kidney Disease, JASN 2020). The CKD-EPI equation should not be used for patients with unstable renal function and has not been validated in children and those over 70. Current interpretive data was last reviewed 2021. Blood 10/03/2022 5:11 AM BOILERMAKER WELDER 10/03/2022 5:39 AM BOILERMAKER WELDER us Portia Bhatt MD LAB BLOOD ORDERABLES Final Re sult [facility] 1 [facility] [place] [address] * Lipid panel (08/13/2021 9:59 AM CDT) Cholesterol 124 30 - 199 mg/dL [facility] Comment: Interpretive Data Ages < or = 19 years Acceptable: <170 mg/dL Borderline high: 170-199 mg/dL High: >or= 200 mg/dL Ages > or = 20 years Desirable: <200 mg/dL Borderline high: 200-239 mg/dL High: >or= 240 mg/dL Literature References: 1. Expert Panel on Integrated Guidelines for Cardiovascular Health and Risk Reduction in Children and Adolescents. Pediatrics 2011;128:S213 2. NCEP Expert Panel. Circulation 2004;110:227 Current Interpretive Data was last revised on 2018. Triglycerides 113 <=149 mg/dL [facility] Comment: Interpretive Data Ages < or = 9 years Acceptable: <75 mg/dL Borderline high: 75-99 mg/dL High: >or= 100 mg/dL Ages 10 to 20 years Acceptable: <90 mg/dL Borderline high: 90-129 mg/dL High: >or= 130 mg/dL Ages > or = 20 years Desirable: <150 mg/dL Borderline high: 150-199 mg/dL High: 200-499 mg/dL Very high: >or= 499 mg/dL Literature References: 1. Expert Panel on Integrated Guidelines for Cardiovascular Health and Risk Reduction in Children and Adolescents. Pediatrics 2011;128:S213 2. NCEP Expert Panel. Circulation 2004;110:227 Current Interpretive Data was last revised on 2018. HDL 48 >=40 mg/dL [facility] Comment: Interpretive Data Ages < or = 19 years Acceptable: >45 mg/dL Borderline low: 40-45 mg/dL Low: <40 mg/dL Ages > or = 20 years Desirable: >or= 60 mg/dL Low: <40 mg/dL Literature References: 1. Expert Panel on Integrated Guidelines for Cardiovascular Health and Risk Reduction in Children and Adolescents. Pediatrics 2011;128:S213 2. NCEP Expert Panel. Circulation 2004;110:227 Current Interpretive Data was last revised on 2018. LDL, calculated 53 <=129 mg/dL [facility] Comment: Interpretive Data Ages < or = 19 years Acceptable: <110 mg/dL Borderline high: 110-129 mg/dL High: >or= 130 mg/dL Ages > or = 20 years Optimal: <100 mg/dL Near optimal: 100-129 mg/dL Borderline high: 130-159 mg/dL High: >160 mg/dL Literature References: 1. Expert Panel on Integrated Guidelines for Cardiovascular Health and Risk Reduction in Children and Adolescents. Pediatrics 2011;128:S213 2. NCEP Expert Panel. Circulation 2003;110:227 Current Interpretive Data was last revised on 2018. Non-HDL Cholesterol 76 mg/dL [facility] Comment: Interpretive Data Ages < or = 19 years Acceptable: <120 mg/dL Borderline high: 120-144 mg/dL High: >145 mg/dL Ages > or = 20 years When triglycerides are >200 mg/dL, Non-HDL cholesterol is a secondary target of therapy with treatment goals that are 30 mg/dL greater than the LDL cholesterol target. Literature References: 1. Expert Panel on Integrated Guidelines for Cardiovascular Health and Risk Reduction in Children and Adolescents. Pediatrics 2011;128:S213 2. NCEP Expert Panel. Circulation 2004;110:227 Current Interpretive Data was last revised on 2018. Chol/HDL ratio [address] [facility] Blood 08/13/2021 9:59 AM CDT 08/13/2021 10:18 AM CDT Karl Stark DO LAB BLOOD ORDERABLES Fi nal Result Performing Organization Address [facility] de Phone Number [facility] Department [place] [address] * (ABNORMAL) Hemoglobin A1c (08/12/2021 9:52 PM CDT) Hgb A1C 8.1(H) 4.0 - 5.6 % [facility] Estimated Average Glucose 186 mg/dL [facility] Comment: The ADA recommends reporting an estimated Average Glucose (eAG) with all Hemoglobin A1c results using the equation derived from a study of 507 normal and diabetic adults. Minority populations were underrepresented and children were not included. (Diabetes Care 2020; 43(S1): S66-S76). The eAG is not equivalent to a fasting glucose. Blood 08/12/2021 9:52 PM CDT 08/12/2021 10:08 PM CDT Freda Whitehead MATERIAL HAULER LAB BLOOD ORDERA BLES Final Result Performing Organization Address [facility] de Phone Number [facility] Department [place] [address] from Last 3 Months or Most Recently Relevant to Health Maintenance Insurance MEDICARE [facility] MEDICARE [facility] MEDICARE [facility] [place] [address] [address] MEDICARE [employer] MEDICARE SUPPLEMENT Advance Directives For more information, please contact: [phone] * Full Code (Latest Code Status on File) Date Activated Date Inactivated Comments 10/01/2022 9:50 PM 10/03/2022 6:46 PM * Full Code Date Activated Date Inactivated Comments 08/12/2021 9:27 PM 08/15/2021 11:27 PM * Full Code Date Activated Date Inactivated Comments 08/11/2021 5:01 PM 08/12/2021 8:48 PM Care Teams Railroad Watchman Relationship Specialty Start Date End Date Cathy Sanderson MD PCP - General 06/21/20 Miscellaneous, Not In File 08/15/21
--- OUTSIDE RECORDS SUMMARY | 2025-01-27 16:26 | XMS_ITS | Referral Summary ---
Author Organization [facility] D Address [address] [place] [id number] Care Team Providers Care Fishing Floats Assembler Name Role Phone Cathy Sanderson MD Primary [...] 10/01/2022 Assessment & Plan (10/02/2022 4:57 AM DIE TRY OUT WORKER): History of recurrent UTIs. Recently treated with Macrobid. Septic workup in progress. Urinalysis positive for UTI with hematuria. Started on cefepime. Follow-up with blood culture, urine cultures. CBC and BMP in a.m.. Acute blood loss anemia 08/12/2021 Atrial fibrillation, persistent 08/12/2021 Assessment & Plan (10/02/2022 4:55 AM DIE TRY OUT WORKER): Rate controlled. On Eliquis oral anticoagulation. Continue metoprolol. Traumatic hematoma of left knee 08/12/2021 Acute pain due to trauma 08/12/2021 Prostatic hypertrophy 08/12/2021 CHAPIN (acute kidney injury) 08/12/2021 Hematoma of thigh 08/11/2021 Complex sleep apnea syndrome 09/09/2017 Severe obesity (BMI 35.0-35.9 with comorbidity) (CMS/HCC) 09/09/2017 Hypersomnia with sleep apnea 09/09/2017 Coronary artery disease invo lving [place] coronary artery of [place] heart without angina pectoris 05/30/2017 Assessment & Plan (10/02/2022 4:55 AM DIE TRY OUT WORKER): Continue metoprolol, lisinopril, amlodipine. Aspirin, statin Assessment & Plan (05/30/2017 10:07 AM CDT): Asymptomatic. He is on anti-platelet and beta-andrey therapy. He was encouraged to get more exercise. Essential hypertension 05/30/2017 Assessment & Plan (10/02/2022 4:55 AM DIE TRY OUT WORKER): Blood pressure is stable. Will resume antihypertensives Assessment & Plan (05/30/2017 10:07 AM CDT): According to his discharge paperwork, his blood pressure was elevated when he was discharged from [facility], but it was checked twice today in was normal both times. No change in medication. Hyperlipidemia 05/30/2017 Assessment & Plan (10/02/2022 4:55 AM DIE TRY OUT WORKER): On statin and aspirin. Assessment & Plan (05/30/2017 10:08 AM CDT): On chronic lipid lowering therapy with good control. No changes made. Proteinuria 02/13/2016 Type 2 diabetes mellitus without complication (C MS/HCC) 02/13/2016 Assessment & Plan (10/02/2022 4:57 AM DIE TRY OUT WORKER): Hold metformin. Started on low-dose sliding scale insulin per inpatient protocol. Immunizations Immunization Administration Dates Next Due Influenza, Trivalent, High D ose, Split, Preservative Free, Intramuscular 07/10/2017 Influenza, Trivalent, IM (MDV) 08/03/2016 Pneumococcal, Unspecified 08/03/2016 Tdap 08/07/2021 Social History Tobacco Use Types Packs/Day Years [...] on file Legal Sex Male 7:48 PM DIE TRY OUT WORKER Gender Identity Not on file Sexual Orientation Not on file Last Filed Vital Signs Vital Sign Reading Time Taken Comments Blood Pressure 151/77 09/08/2024 10:38 AM DIE TRY OUT WORKER Pulse 57 09/08/2024 10:38 AM DIE TRY OUT WORKER Temperature 36.6 C (97.8 F) 10/03/2022 8:07 AM DIE TRY OUT WORKER Respiratory Rate 16 09/17/2023 10:35 AM DIE TRY OUT WORKER Oxygen Saturation 96% 09/08/2024 10:38 AM DIE TRY OUT WORKER Inhaled Oxygen Concentration - - Weight 107 kg (235 lb 12.8 oz) 09/08/2024 10:38 AM DIE TRY OUT WORKER Height 170.2 cm (5' 7.01 ) 09/08/2024 10:[address] Body Mass Index 36.92 09/08/2024 10:38 AM DIE TRY OUT WORKER Plan of Treatment Not on file Procedures Procedure Name Priority Date/Time Associated Diagnosis Comments EGFR Routine 10/03/2022 5:11 AM DIE TRY OUT WORKER LIPID PANEL Timed 08/13/2021 9:59 AM CDT HEMOGLOBIN A1C Timed 08/12/2021 9:52 PM CDT from Last 3 Months or Most Recently Relevant to Health Maintenance Results * eGFR (10/03/2022 5:11 AM DIE TRY OUT WORKER) eGFR 63 mL/min/1. 73 m2 [facility] Comment: Interpretive Data Reference Interval Normal >/= [...] last reviewed 2021. Blood 10/03/2022 5:11 AM DIE TRY OUT WORKER 10/03/2022 5:39 AM DIE TRY OUT WORKER us Portia Bhatt MD LAB BLOOD ORDERABLES Final Re sult [facility] 1 [facility] Department of Laboratories [place], [place] [id number] * Lipid panel (08/13/2021 9:59 AM CDT) Cholesterol 124 30 - 199 mg/dL [facility] Comment: Interpretive Data Ages < or = [...] on 2018. Triglycerides 113 <=149 mg/dL [facility] Comment: Interpretive Data Ages < or = [...] on 2018. HDL 48 >=40 mg/dL [facility] Comment: Interpretive Data Ages < or = [...] 2018. LDL, calculated 53 <=129 mg/dL [facility] Comment: Interpretive Data Ages < or = [...] on 2018. Non-HDL Cholesterol 76 mg/dL [facility] Comment: Interpretive Data Ages < or = [...] last revised on 2018. Chol/HDL ratio 3 [facility] Blood 08/13/2021 9:59 AM CDT 08/13/2021 10:18 AM CDT us Karl Stark DO LAB BLOOD ORDERABLES Fi nal Result Performing Organization Address [facility] de Phone Number [facility] [place] [address] * (ABNORMAL) Hemoglobin A1c (08/12/2021 9:52 PM CDT) [facility] Signature Hgb A1C 8.1(H) 4.0 - 5.6 % [facility] Estimated Average Glucose 186 mg/dL [facility] Comment: The ADA recommends reporting an estimated Average Glucose (eAG) with all Hemoglobin A1c results using the equation derived from a study of 507 normal and diabetic adults. Minority populations were underrepresented and children were not included. (Diabetes Care 2020; 43(S1): S66-S76). The eAG is not equivalent to a fasting glucose. Blood 08/12/2021 9:52 PM CDT 08/12/2021 10:08 PM CDT us Freda Whitehead HISTORY CARD CLERK LAB BLOOD ORDERA BLES Final Result Performing Organization Address [facility] de Phone Number [facility] Department [place] [address] from Last 3 Months or Most Recently Relevant to Health Maintenance Insurance MEDICARE [employer] [facility] MEDICARE [facility] MEDICARE [facility] Subscriber Plan / Payer (Ef fective 2021-Present) Name:Rich Paz Relation to Subscriber:Self Name:Rich Paz Payer ID:[id number] (NAIC) Type:[facility] Address: [address] MEDICARE [facility] MEDICARE SUPPLEMENT Advance Directives For more information, please contact: [phone] * Full Code (Latest Code Status on File) Date Activated Date Inactivated Comments 10/01/2022 9:50 PM 10/03/2022 6:46 PM * Full Code Date Activated Date Inactivated Comments 08/12/2021 9:27 PM 08/15/2021 11:27 PM * Full Code Date Activated Date Inactivated Comments 08/11/2021 5:01 PM 08/12/2021 8:48 PM Care Teams Fishing Floats Assembler Relationship Specialty Start Date End Date Cathy Sanderson MD PCP - General 06/21/20 Miscellaneous, Not In File 08/15/21
[2025-01-27 19:55] LABS: Basophils Absolute Auto 0.1 K/mm3 (0.0-0.1); Basophils Percent Auto 0.6 % (0.2-1.2); Eosinophils Absolute Auto 0.2 K/mm3 (0-0.3); Eosinophils Percent Auto 2.5 % (0-4.4); Hemoglobin 13.1 g/dL (14.0-18.0); Immature Granulocyte Absolute 0.03 K/mm3 (0.00-0.031); Immature Granulocyte Percent A 0.4 % (0-0.5); Lymphocytes Absolute Auto 1.67 K/mm3 (0.9-3.2); Lymphocytes Percent Auto 21.1 % (18.3-44.2); Mean Corpuscular HGB Conc 32.8 g/dl (32-36); Mean Corpuscular Hemoglobin 32.7 pg (26-34); Mean Corpuscular Volume 99.8 fl (80-100); Mean Platelet Volume 9.5 fl (7.4-10.4); Monocytes Absolute Auto 0.7 K/mm3 (0.1-0.6); Monocytes Percent Auto 8.6 % (2.6-8.5); Neutrophils Absolute Auto 5.3 K/mm3 (1.3-6.7); Neutrophils Percent Auto 66.8 % (45.5-73.1); Platelet Count Result 247 k/mm3 (150-375); Red Blood Count 4.01 M/mm3 (4.6-6.20); Red Cell Distribution Width 13.2 % (11.5-14.5); White Blood Count 7.9 K/mm3 (4.5-10.0)
[2025-01-27 20:09] LABS: Alanine Aminotransferase 23 U/L (6-50); Albumin Level 4.1 g/dL (3.5-5.1); Alkaline Phosphatase 54 U/L (38-126); Anion Gap 14 mmol/L (4-12); Aspartate Amino Transferase 38 U/L (17-59); Bilirubin,Total 0.6 mg/dL (0.2-1.3); Blood Urea Nitrogen 21 mg/dL (9-20); Calcium 9.2 mg/dL (8.4-10.2); Carbon Dioxide 20 mmol/L (22-30); Chloride 106 mmol/L (98-107); Cholesterol 133 mg/dL (0-200); Estimated Glomerular Filt Rate 46; Glucose 94 mg/dL (65-110); HDL Direct 50 mg/dL; Potassium 4.4 mmol/L (3.4-5.0); Sodium 140 mmol/L (137-145); Triglycerides 164 mg/dL (<150)
[2025-01-27 20:17] LABS: Hemoglobin A1C 5.7 % (<5.7)
[2025-01-27 20:19] LABS: LDL Cholesterol Direct 57 mg/dL; Vitamin D 25 Hydroxy 55.6 ng/mL
[2025-01-27 20:52] LABS: Creatinine Urine 242.9 mg/dL
[2025-01-27 20:59] LABS: MALB Creatinine Ratio 15.2 mg/g (0-30)
== END 2025-01-27 15:08 | disposition home or self-care (01) ==
LOC: ANHGOSHLAB 15:08
PROVIDERS: PCP Family Medicine; Visit Provider Nurse Practitioner Family
DX: E78.5 Hyperlipidemia, unspecified (principal); E11.9 Type 2 diabetes mellitus without complications; I10 Essential (primary) hypertension; E55.9 Vitamin D deficiency, unspecified
CPT/HCPCS: 36415; 80053; 80061; 82043; 82306; 83036; 84443; 85025

== ENCOUNTER 2025-08-09 11:36 | Outpatient (CLI) | payer MEDICARE, SELFPAY ==
[2025-08-09 13:16] LABS: Hematocrit 39.6 % (42.0-52.0); Hemoglobin 13.2 g/dL (14.0-18.0); Immature Granulocyte Percent A 0.6 % (0-0.5); Lymphocytes Absolute Auto 1.33 K/mm3 (0.9-3.2); Mean Corpuscular HGB Conc 33.3 g/dl (32-36); Mean Corpuscular Hemoglobin 32.3 pg (26-34); Mean Corpuscular Volume 96.8 fl (80-100); Nucleated Red Blood Cells Absolute Auto 0.000 K/mm3 (0.0-0.012); Nucleated Red Blood Cells Perc 0.0 % (0.0-0.2); Platelet Count Result 267 k/mm3 (150-375); Red Blood Count 4.09 M/mm3 (4.6-6.20); White Blood Count 7.2 K/mm3 (4.5-10.0)
--- OUTSIDE RECORDS SUMMARY | 2025-08-09 13:18 | XMS_ITS | Clinical Summary ---
Author Organization [facility] D Address [address] [place] [id number] Care Team Providers Care Real Estate Recruiter Name Role Phone Cathy Sanderson MD Primary [...] 2 (two) times a day 180 tablet 3 5 05/11/20 26 Active Active Problems Problem Noted Date Diagnosed Date Pyelonephritis 10/01/2022 Assessment & Plan (10/02/2022 4:57 AM ENGRAVING PRESS OPERATOR): History of recurrent UTIs. Recently treated with Macrobid. Septic workup in progress. Urinalysis positive for UTI with hematuria. Started on cefepime. Follow-up with blood culture, urine cultures. CBC and BMP in a.m.. Acute blood loss anemia 08/12/2021 Atrial fibrillation, persistent 08/12/2021 Assessment & Plan (10/02/2022 4:55 AM ENGRAVING PRESS OPERATOR): Rate controlled. On Eliquis oral anticoagulation. Continue metoprolol. Traumatic hematoma of left knee 08/12/2021 Acute pain due to trauma 08/12/2021 Prostatic hypertrophy 08/12/2021 CHAPIN (acute kidney injury) 08/12/2021 Hematoma of thigh 08/11/2021 Complex sleep apnea syndrome 09/09/2017 Severe obesity (BMI 35.0-35.9 with comorbidity) (CMS/HCC) 09/09/2017 Hypersomnia with sleep apnea 09/09/2017 Coronary artery disease invo lving [place] coronary artery of [place] heart without angina pectoris 05/30/2017 Assessment & Plan (10/02/2022 4:55 AM ENGRAVING PRESS OPERATOR): Continue metoprolol, lisinopril, amlodipine. Aspirin, statin Assessment & Plan (05/30/2017 10:07 AM CDT): Asymptomatic. He is on anti-platelet and beta-andrey therapy. He was encouraged to get more exercise. Essential hypertension 05/30/2017 Assessment & Plan (10/02/2022 4:55 AM ENGRAVING PRESS OPERATOR): Blood pressure is stable. Will resume antihypertensives Assessment & Plan (05/30/2017 10:07 AM CDT): According to his discharge paperwork, his blood pressure was elevated when he was discharged from [facility], but it was checked twice today in was normal both times. No change in medication. Hyperlipidemia 05/30/2017 Assessment & Plan (10/02/2022 4:55 AM ENGRAVING PRESS OPERATOR): On statin and aspirin. Assessment & Plan (05/30/2017 10:08 AM CDT): On chronic lipid lowering therapy with good control. No changes made. Proteinuria 02/13/2016 Type 2 diabetes mellitus without complication (C MS/HCC) 02/13/2016 Assessment & Plan (10/02/2022 4:57 AM ENGRAVING PRESS OPERATOR): Hold metformin. Started on low-dose sliding scale insulin per inpatient protocol. Immunizations Immunization Administration Dates Next Due Influenza, Trivalent, High D ose, Split, Preservative Free, Intramuscular 07/10/2017 Influenza, Trivalent, IM (MDV) 08/03/2016 Pneumococcal, Unspecified 08/03/2016 Tdap 08/07/2021 Surgical History Surgery Date Site/Laterality Comments HEART SURGERY open heart surgery Medical History Medical History Date Comments Hx Other Medical diabetes; Comme nts: [facility] 06/08/2015 - Hx Other Medical high cholestero l; Comments: [facility] 06/08/2015 - Diabetes mellitus Hypertension Stroke (HCC) Sleep apnea Family History [...] on file Legal Sex Male 7:48 PM ENGRAVING PRESS OPERATOR Gender Identity Not on file Sexual Orientation Not on file Obstetrics History Last Filed Vital Signs Vital Sign Reading Time Taken Comments Blood Pressure 135/77 03/11/2025 1:12 PM CDT Lg. Adult Cuff Pulse 58 03/11/2025 1:12 PM CDT Temperature 36.6 C (97.8 F) 10/03/2022 8:07 AM ENGRAVING PRESS OPERATOR Respiratory Rate 16 03/11/2025 1:12 PM CDT Oxygen Saturation 96% 09/08/2024 10: 38 AM ENGRAVING PRESS OPERATOR Inhaled Oxygen Concentration - - Weight 108 kg (238 lb) 03/11/2025 1:12 PM CDT Height 170.2 cm (5' 7) 03/11/2025 1:12 PM CDT Body Mass Index 37.28 03/11/2025 1:12 PM CDT Plan of Treatment Health Maintenance Due Date [...] 09/14, 10/01/2022, Additional history exists Influenza Vaccine (#1) 2025 8, 07/10/2017, 08/03/2016, Additional history exists DTaP/Tdap/Td Vaccine (2 - Td or Tdap) 08/07/2031 08/07/2021 Procedures Procedure Name Priority Date/Time Associated Diagnosis Comments EGFR Routine 10/03/2022 5:11 AM ENGRAVING PRESS OPERATOR LIPID PANEL Timed 08/13/2021 9:59 AM CDT HEMOGLOBIN A1C Timed 08/12/2021 9:52 PM CDT from Last 3 Months or Most Recently Relevant to Health Maintenance Results * eGFR (10/03/2022 5:11 AM ENGRAVING PRESS OPERATOR) eGFR 63 mL/min/1. 73 m2 [facility] [...] last reviewed 2021. Blood 10/03/2022 5:11 AM ENGRAVING PRESS OPERATOR 10/03/2022 5:39 AM ENGRAVING PRESS OPERATOR us Portia Bhatt MD LAB BLOOD ORDERABLES Final Re sult [facility] ([place]) [facility] Department [place] [address] * Lipid panel (08/13/2021 9:59 AM CDT) Cholesterol 124 30 - 199 mg/dL [facility] Comment: Interpretive Data Ages < or [...] on 2018. Triglycerides 113 <=149 mg/dL [facility] Comment: Interpretive Data Ages [...] on 2018. HDL 48 >=40 mg/dL [facility] Comment: Interpretive Data Ages [...] 2018. LDL, calculated 53 <=129 mg/dL [facility] Comment: Interpretive Data Ages < or [...] revised on 2018. Non-HDL Cholesterol 76 mg/dL [facility] Comment: Interpretive Data Ages < or [...] last revised on 2018. Chol/HDL ratio [address] [facility] Blood 08/13/2021 9:59 AM CDT 08/13/2021 10:18 AM CDT us Karl Stark DO LAB BLOOD ORDERABLES Fi nal Result [facility] Department [place] [address] * (ABNORMAL) Hemoglobin A1c (08/12/2021 9:52 PM CDT) Hgb A1C 8.1(H) 4.0 - 5.6 % [facility] Estimated Average Glucose 186 mg/dL [facility] Comment: The ADA recommends reporting an estimated Average Glucose (eAG) with all Hemoglobin A1c results using the equation derived from a study of 507 normal and diabetic adults. Minority populations were underrepresented and children were not included. (Diabetes Care 2020; 43(S1): S66-S76). The eAG is not equivalent to a fasting glucose. Blood 08/12/2021 9:52 PM CDT 08/12/2021 10:08 PM CDT Freda Whitehead NP LAB BLOOD ORDERABLES Fi nal Result [facility] Department [place] [address] from Last 3 Months or Most Recently Relevant to Health Maintenance Insurance MEDICARE [facility] MEDICARE [facility] MEDICARE [facility] Member Subscriber Plan / Payer ( fective 2021-) Name:Rich Paz Relation to Subscriber:Self Name:Rich Paz Payer ID:[id number] (NAIC) Type:[facility] Address: [address] [place] [id number] [facility] MEDICARE BLUE CROSS MEDICARE SUPPLEMENT Advance Directives For more information, please contact: [phone] * Full Code (Latest Code Status on File) Date Activated Date Inactivated Comments 10/01/2022 9:50 PM 10/03/2022 6:46 PM * Full Code Date Activated Date Inactivated Comments 08/12/2021 9:27 PM 08/15/2021 11:27 PM * Full Code Date Activated Date Inactivated Comments 08/11/2021 5:01 PM 08/12/2021 8:48 PM Care Teams Real Estate Recruiter Relationship Specialty Start Date End Date Cathy Sanderson MD PCP - General 06/21/20 Miscellaneous, Not In File 08/15/21
[2025-08-09 13:29] LABS: Alanine Aminotransferase 26 U/L (6-50); Albumin Level 4.5 g/dL (3.5-5.1); Alkaline Phosphatase 58 U/L (38-126); Anion Gap 11 mmol/L (4-12); Aspartate Amino Transferase 41 U/L (17-59); Bilirubin,Total 0.9 mg/dL (0.2-1.3); Blood Urea Nitrogen 25 mg/dL (9-20); Calcium 9.4 mg/dL (8.4-10.2); Carbon Dioxide 23 mmol/L (22-30); Chloride 105 mmol/L (98-107); Cholesterol 140 mg/dL (0-200); Estimated Glomerular Filt Rate 46; Glucose 80 mg/dL (65-110); HDL Direct 41 mg/dL; Potassium 4.5 mmol/L (3.4-5.0); Sodium 139 mmol/L (137-145); Total Protein 7.9 g/dL (6.3-8.2); Triglycerides 112 mg/dL (<150)
[2025-08-09 17:21] LABS: Hemoglobin A1C 5.1 % (<5.7)
== END 2025-08-09 11:37 | disposition home or self-care (01) ==
LOC: ANHGOSHLAB 11:37
PROVIDERS: PCP Nurse Practitioner Family; Visit Provider Nurse Practitioner Family
DX: E78.5 Hyperlipidemia, unspecified (principal); E11.9 Type 2 diabetes mellitus without complications; I10 Essential (primary) hypertension
CPT/HCPCS: 36415; 80053; 80061; 83036; 85025